=== PATIENT | female | born 1995 | race Caucasian/White ===

== ENCOUNTER 2018-02-14 09:59 | Emergency (ER) | payer OTHER ==
[~2018-02-14] VITALS: Ht 149.9 cm; Wt 87.1 kg
[2018-02-14] MEDS ORDERED: SYNTHROID50 MCG PO (10:31)
== END 2018-02-14 15:51 | disposition home or self-care (01) ==
LOC: ER 09:59
DX: N92.0 Excessive and frequent menstruation with regular cycle (principal)